=== PATIENT | male | born 1995 | race Caucasian/White ===

== ENCOUNTER 2020-09-05 10:44 | Emergency (ER) | payer OTHER, SELFPAY ==
[2020-09-05 10:53] VITALS: BP 132/79; PULSE 63; RESP 18; TEMP 36.8; O2SAT 96; BMI 21.2
[2020-09-05 10:59] VITALS: BP 132/79; PULSE 66; RESP 18; TEMP 36.8; O2SAT 96
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
== END 2020-09-05 11:38 | disposition home or self-care (01) ==
PROVIDERS: Emergency Provider Physician Assistant
DX: T21.16XA Burn of first degree of male genital region, initial encounter (principal); T21.22XA Burn of second degree of abdominal wall, initial encounter; X08.8XXA Exposure to other specified smoke, fire and flames, initial encounter
CPT/HCPCS: 99281